=== PATIENT | female | born 1975 | race Caucasian/White ===

== ENCOUNTER 2017-12-16 10:43 | Emergency (ER) | payer OTHER ==
[~2017-12-16] VITALS: Ht 175.3 cm; Wt 163.8 kg
[2017-12-16 10:58] VITALS: BP 171/68
--- NOTE | 2017-12-16 11:03 | NUR ---
Patient ambulated to bed 9. RN evaluating patient at bedside.
--- NOTE | 2017-12-16 11:08 | NUR ---
REPORT GIVEN TO TONE SHABAZZ
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
--- NOTE | 2017-12-16 11:23 | NUR ---
Dr. Phillips evaluating patient at bedside.
--- NOTE | 2017-12-16 11:35 | NUR ---
Dr. Uriarte evaluating patient at bedside.
--- NOTE | 2017-12-16 11:43 | NUR ---
PT BP ELEVATED AT 185/84. PATIENT DENIES ANY SYMPTOMS OF HIGH BLOOD PRESSURE AT THIS TIME. DR SHANE MADE AWARE.
--- NOTE | 2017-12-16 11:47 | NUR ---
biometrics technician at bedside.
[2017-12-16 13:00] VITALS: BP 139/89
== END 2017-12-16 13:02 | disposition home or self-care (01) ==
LOC: MED 10:43
DX: M25.512 Pain in left shoulder (principal); I10 Essential (primary) hypertension
CPT/HCPCS: 73030; 99284; Q0092